=== PATIENT | female | born 1985 | race Caucasian/White ===

== ENCOUNTER 2022-11-07 00:46 | Day surgery (SDC) | payer MEDICARE, MEDICAID, SELFPAY ==
--- NOTE | 2022-10-26 16:16 | SUR.PREOP ---
Report to the Outpatient Waiting Room, entrance under the green pavilion located off [facility], at time 0630 on date 11/07/22. Planned Procedure Time: 0830. Time changes happen often and if your time is changed the preop area will call you the afternoon before. - You and your visitor will be asked to self-screen and do not enter if you have any COVID symptoms. - A mask is optional within the hospital at this time. Patients may have clear liquids (water, carbonated beverages, clear teas, apple juice) until 3 hours prior to surgery with a maximum of 20 ounces. - NO CLEAR LIQUIDS AFTER 0530 - No food from midnight until time of surgery - Infants may have breast milk until 4 hours before surgery, infant formula 6 hours prior to surgery. - Children will be allowed to drink immediately following surgery. If applicable, please bring a bottle or sippy cup to assist with drinking. Juice, water, soda, and popsicles are readily available. For infants on formula, please bring formula the day of surgery. Pacifiers are allowed. Take the following medications with a SIP of water the morning of surgery: BUSPIRONE, LORAZEPAM, BUPROPION, TRAZODONE DO NOT STOP ANY OF YOUR OTHER PRESCRIPTION MEDICATIONS PRIOR TO SURGERY ?EXCEPT THE FOLLOWING Medications to discontinue per physician N/A Date to take last dose Please no make-up, nail monegasque, hairspray, perfume, deodorant, or body powder the day of surgery. No jewelry (including any body piercings) or valuables the day of surgery, leave them at home. Please take a shower or bath the night before, or the morning of, surgery with an antibacterial soap. Wear comfortable, loose fitting clothing. Children are encouraged to wear pajamas. - Jewelry must be removed prior to entering the operating room. Rings and piercings that are not removed may be cut off. - The hospital will not accept responsibility for valuables. - Please leave all valuables, including medications, at home the day of surgery. If you are going home after surgery, a licensed cdl dedicated truck driver must drive you home. - NO public transportation without another adult if you receive anesthesia. - We recommend that an adult stay with you for 24 hours following discharge. - We also recommend that you do not drive, make important decision, drink alcoholic beverages, or take any drugs that were not prescribed by your health care provider for at least 24 hours after your discharge time. For Pediatric surgeries, we recommend two adults accompany the child home. Follow any additional instructions given to you from your surgeon. If you or anyone in your household have experienced Covid symptoms in the past week, please notify your surgeon or the nurse liaison at the phone number below for possible testing. Telephone instructions given to NICKY NOYOLA and asked if any additional questions and then verbalized understanding. Patient advised to call surgeon office or pre surgery nurse liaison [phone] if any additional questions.
[2022-10-26 16:29] VITALS: BMI 27.7
[2022-11-07] VITALS (11 sets, daily range): BP systolic 91–115; BP diastolic 51–70; PULSE 55–81; RESP 12–18; TEMP 36.1–36.8; O2SAT 96–100
--- NOTE | 2022-11-07 06:50 | WPDANESEPPF ---
Anes - Initial Pre Proc Eval Procedure: Operation Date: 11/07/22 08:30 Proposed Procedures p Laparoscopic Bilateral Salpingectomy - Zabrina Livingston MD Date/Time: 11/07/22 06:50 Surgeon: Zabrina Livingston MD Pre Op Diagnosis: female sterilzation Patient Data Age: 36 Gender: F Height: 1.75 m Weight: 85.3 kg Allergies Allergy/AdvReac Type Severity Reaction Status Date / Time codeine Allergy Severe Vomiting Verified 10/26/22 15:48 escitalopram Allergy Severe Other Verified 10/26/22 15:48 hydrocodone Allergy Severe Vomiting Verified 10/26/22 15:48 latex Allergy Severe Rash Verified 10/26/22 15:48 Sulfa (Sulfonamide Allergy Severe Rash Verified 10/26/22 15:48 Antibiotics) venlafaxine Allergy Severe Nausea and Verified 10/26/22 15:48 Vomiting Penicillins Allergy Unknown Unknown Verified 10/26/22 15:48 Home Medications Medication Instructions Recorded Confirmed Type albuterol 2 puff inhalation PRN PRN 10/26/22 10/26/22 History Shortness Of Breath brexpiprazole 1 mg tablet (Rexulti) 1 mg PO PRN PRN MOOD 10/26/22 10/26/22 History bupropion HCl 75 mg tablet 75 mg PO DAILY 10/26/22 10/26/22 History buspirone 15 mg tablet 15 mg PO TID 10/26/22 10/26/22 History cetirizine 10 mg tablet (Zyrtec) 10 mg PO DAILY 10/26/22 10/26/22 History fluticasone propionate 50 2 spray intranasal DAILY 10/26/22 10/26/22 History mcg/actuation nasal spray,suspension lisdexamfetamine 60 mg capsule 60 mg PO DAILY 10/26/22 10/26/22 History (Vyvanse) lorazepam 1 mg tablet 1 mg PO TID PRN Anxiety 10/26/22 10/26/22 History methylphenidate HCl 20 mg tablet 20 mg PO BID 10/26/22 10/26/22 History omeprazole 40 mg capsule,delayed 40 mg PO HS 10/26/22 10/26/22 History release temazepam 15 mg capsule 15 mg PO PRN PRN MOOD 10/26/22 10/26/22 History tranexamic acid 650 mg tablet 1,300 mg PO DAILY 10/26/22 10/26/22 History trazodone 100 mg tablet 200 mg PO DAILY 10/26/22 10/26/22 History Patient hx anesthesia problems: none Family hx anesthesia problems: none Results Review: All pre-operative results and documents have been reviewed as part of the pre-operative evaluation. [facility] Past Medical History Medical History (Updated 11/07/22 @ 06:50 by Bertrand Aguilera MD) Anxiety Bipolar 1 disorder Surgical History Surgical History (Updated 11/07/22 @ 06:50 by Bertrand Aguilera MD) H/O wisdom tooth extraction History of D&C Social History Social History Smoking status: Never smoker Substance use: current Substance use type: marijuana Other substance usage details: RARE MARIJUANA USE Spiritual care concerns: No Anes - Eval Final PreProcedure Day of Procedure 11/07/22 06:50 Patient weight: overweight Heart: regular rate and rhythm Lungs: clear to auscultation Airway: Mallampati scale class II Neurological: alert and oriented Last oral intake: >/= 8 hours ASA classification: III Emergent: no Anesthetic plan: proceed Anesthesia type and monitoring: general ETT and standard monitoring Results Review: All pre-operative results and documents have been reviewed as part of the pre-operative evaluation. Informed Consent: The patient's anesthetic plan and its attendant risks and benefits were discussed with the patient/family/POA. Questions were solicited and answers provided to the satisfaction of the patient/family/POA.
[2022-11-07] MEDS: LACTATED RINGERS 1,000 ML 30 ML IV CONT ×2 (07:00→10:00)
[2022-11-07] MEDS: ACETAMINOPHEN 500 MG TABLET 1000 MG PO (07:00)
[2022-11-07] MEDS: KETOROLAC 15 MG/ML VIAL (*BKC) IV PUSH (07:00)
--- NOTE | 2022-11-07 07:17 | WPDHPUPDATE1 ---
History and Physical Update Update Date/Time: 11/07/22 07:17 History and Physical has been reviewed, including an updated exam of the patient. There are NO changes in the patient's condition. Risks, benefits, and alternatives have been discussed and questions answered. Patient agrees to proceed with procedure.
--- NOTE | 2022-11-07 09:40 | W.PM.PROC2 ---
Procedure Note - Detailed Date of Procedure 11/07/22 Pre-op Diagnosis female sterilzation Post-op Diagnosis Same Procedure Performed Laparoscopic bilateral salpingectomy Surgeon Zabrina Livingston MD Anesthesia General Indications Unwanted fertility Findings Normal pelvic anatomy Description of Procedure The patient was taken the operating room. She was prepped and draped in the dorsal lithotomy position after induction of general anesthesia. A 5 mm skin incision was made in the left upper quadrant of the abdominal skin. A 5 mm trocar was inserted the intra-abdominal cavity under direct visualization of the scope. Pneumoperitoneum was achieved. A 5 mm trocar was inserted in the left lower quadrant identical fashion. A 5 mm infraumbilical trocar was inserted in identical fashion as well. The bilateral fallopian tubes were removed. This was done by using a LigaSure cautery. The mesosalpinx adjacent to the tube was cauterized transected with LigaSure. This was initiated in the area the ovary and in a stepwise fashion moved medially to the area of the cornu of the uterus. Once there the fallopian tube was cauterized and transected. This was done in identical fashion on each side. The fallopian tubes were taken out through the left lower quadrant trocar site. The pneumoperitoneum was reduced. The trocars removed. The skin was closed with subcuticular 4 Monocryl and covered with Dermabond. She was taken to cover stable condition. Sponge lap and needle counts were correct x2. Estimated Blood Loss 5 Drains No Packing No Pathology Yes Complications No immediate complications Condition Stable Disposition PACU
[2022-11-07] MEDS: fentaNYL CITRATE INJ (*CRX) 100 MCG/2 ML VIAL 25 MCG IV PUSH ×3 (09:53→10:07)
[2022-11-07] MEDS: oxyCODONE HCL (*CRX) 5 MG TAB IR PO (10:46)
== END 2022-11-07 11:50 | disposition home or self-care (01) ==
PROVIDERS: PCP Family Medicine; Visit Provider Obstetrics & Gynecology
PROC: (CPT 49320; principal; 2022-11-07 08:30)
DX: Z30.2 Encounter for sterilization (principal); Z79.51 Long term (current) use of inhaled steroids; F41.9 Anxiety disorder, unspecified; F31.9 Bipolar disorder, unspecified; F12.90 Cannabis use, unspecified, uncomplicated
CPT/HCPCS: 58661; 88302; A9270; J0330; J1100; J1200; J1885; J2250; J2405; J2704; J3010; J7030; J7120